=== PATIENT | male | born 1985 | race Hispanic/Latino ===

== ENCOUNTER 2018-04-10 20:00 | Emergency (ER) | payer BC ==
[2018-04-10] MEDS ORDERED: ACETAMINOPHEN-CODEINE 300/30MG TAB ONE (20:55)
== END 2018-04-10 21:09 | disposition home or self-care (01) ==
LOC: EDH 20:00
DX: S20.222A Contusion of left back wall of thorax, initial encounter (principal); W01.198A Fall on same level from slipping, tripping and stumbling with subsequent striking against other object, initial encounter; Y93.01 Activity, walking, marching and hiking; Y92.89 Other specified places as the place of occurrence of the external cause; Y99.8 Other external cause status
CPT/HCPCS: 71101

== ENCOUNTER 2020-06-29 12:49 | Inpatient (IN) | payer BC ==
[~2020-06-29] VITALS: Ht 182.9 cm; Wt 61.7 kg
[2020-06-29] MEDS ORDERED: HYDROXYZINE 25 MG TABLET ONE (13:28)
[2020-06-29 14:41] LABS: BASOPHILS % (AUTO) 0.7 % (0.0-5.0); EOSINOPHILS % (AUTO) 0.2 % (0.0-8.0); HEMATOCRIT 40.7 % (42-54); LYMPHOCYTES % (AUTO) 14.1 % (21.0-51.0); MEAN CORPUSCULAR HEMOGLOBIN 28.8 pg (27.0-33.0); MEAN CORPUSCULAR HGB CONC 32.9 g/dL (32.0-36.0); MEAN CORPUSCULAR VOLUME 87.5 fL (79-99); NEUTROPHILS % (AUTO) 74.7 % (40.0-77.0); PLATELET COUNT (AUTO) 267 K/uL (130-400); RED BLOOD CELL COUNT(AUTO) 4.65 MIL/uL (4.50-6.20); RED CELL DISTRIBUTION WIDTH 12.7 % (11.0-15.5); WHITE BLOOD COUNT (AUTO) 9.7 K/uL (4.8-10.8)
[2020-06-29 14:51] LABS: CREATININE 0.7 mg/dL (0.5-1.5); POTASSIUM 3.3 mmol/L (3.5-5.1)
[2020-06-29 14:54] LABS: ACETAMINOPHEN 4 mcg/mL (10-29); ALCOHOL, BLOOD < 3 mg/dL (0-10)
[2020-06-29 14:55] LABS: ALBUMIN 4.3 g/dL (3.5-5.0); BILIRUBIN,TOTAL 0.9 mg/dL (0.2-1.0)
[2020-06-29] MEDS ORDERED: 0.9%NACL 50ML 50 ML IV ONE (15:03)
[2020-06-29] MEDS ORDERED: 0.9%NACL 1000ML 1,000 ML IV ONE (15:05)
[2020-06-29 15:15] LABS: APPEARANCE,URINE Clear (CLEAR); BILIRUBIN,URINE Negative (NEGATIVE); COLOR,URINE Yellow (YELLOW); GLUCOSE, URINE (UA) Negative (NEGATIVE); KETONES,URINE Negative (NEGATIVE); LEUKOCYTE ESTERASE ,URINE Negative (NEGATIVE); NITRATE,URINE Negative (NEGATIVE); OCCULT BLOOD,URINE Negative (NEGATIVE); PROTEIN,URINE Negative (NEGATIVE); UROBILINOGEN,URINE 0.2 mg/dL (0.2-1.0)
[2020-06-29] MEDS ORDERED: LORAZEPAM 2 MG/ML 1 ML VIAL ONE ×3 (16:13→21:50)
[2020-06-29] MEDS ORDERED: HALOPERIDOL INJ 5 MG/ML VIAL ONE (16:13)
[2020-06-29] MEDS ORDERED: ZIPRASIDONE MESYLATE 20 MG/VIAL IM ONE (17:24)
[2020-06-29 17:25] LABS: AMPHET/METH SCREEN,URINE NEGATIVE (NEGATIVE); BARBITURATE SCREEN, URINE NEGATIVE (NEGATIVE); BENZODIAZEPINES SCREEN,URINE NEGATIVE (NEGATIVE); CANNABINOID SCREEN,URINE POSITIVE (NEGATIVE); COCAINE SCREEN,URINE NEGATIVE (NEGATIVE); OPIATE SCREEN,URINE NEGATIVE (NEGATIVE); PHENCYCLIDINE SCREEN,URINE NEGATIVE (NEGATIVE)
[2020-06-29] MEDS ORDERED: ZIPRASIDONE MESYLATE 20 MG/VIAL IM SCH (17:30)
[2020-06-29] MEDS ORDERED: OLANZAPINE 10MG/ML 1ML VIAL IM ONE (17:45)
[2020-06-29] MEDS ORDERED: ONDANSETRON 4MG INJ IVP PRN (18:00)
[2020-06-29] MEDS ORDERED: OLANZAPINE 10MG/ML 1ML VIAL IM PRN (21:30)
[2020-06-29] MEDS ORDERED: LORAZEPAM 2 MG/ML 1 ML VIAL IM PRN (21:30)
[2020-06-29] MEDS ORDERED: LORAZEPAM 2 MG/ML 1 ML VIAL IVP NR (22:45)
[2020-06-29] MEDS ORDERED: LORAZEPAM 2 MG/ML 1 ML VIAL IVP SCH (23:00)
[2020-06-30] MEDS: 0.9%NACL 1000ML 1,000 ML IV SCH ×3 (01:36→15:57)
[2020-06-30 02:15] VITALS: BP 141/66
[2020-06-30] MEDS ORDERED: POTASSIUM CHLORIDE 20MEQ/100ML 100 ML IV PRN (03:30)
[2020-06-30] MEDS ORDERED: POTASSIUM CHLORIDE 10% ELIXIR 20 MEQ/15 ML UDCUP PO PRN (03:30)
[2020-06-30] MEDS ORDERED: LIDOCAINE HCL-MPF 1% 2ML VIAL IV PRN (03:30)
[2020-06-30 05:02] LABS: BASOPHILS % (AUTO) 0.7 % (0.0-5.0); EOSINOPHILS % (AUTO) 0.2 % (0.0-8.0); HEMATOCRIT 42.1 % (42-54); LYMPHOCYTES % (AUTO) 14.3 % (21.0-51.0); MEAN CORPUSCULAR HEMOGLOBIN 28.5 pg (27.0-33.0); MEAN CORPUSCULAR HGB CONC 32.3 g/dL (32.0-36.0); MEAN CORPUSCULAR VOLUME 88.3 fL (79-99); MONOCYTES % (AUTO) 10.8 % (3.0-13.0); NEUTROPHILS % (AUTO) 73.7 % (40.0-77.0); PLATELET COUNT (AUTO) 236 K/uL (130-400); RED BLOOD CELL COUNT(AUTO) 4.77 MIL/uL (4.50-6.20); RED CELL DISTRIBUTION WIDTH 12.7 % (11.0-15.5); WHITE BLOOD COUNT (AUTO) 9.2 K/uL (4.8-10.8)
[2020-06-30 05:39] LABS: ALBUMIN 3.8 g/dL (3.5-5.0); BILIRUBIN,TOTAL 1.1 mg/dL (0.2-1.0); CREATININE 0.7 mg/dL (0.5-1.5); POTASSIUM 3.9 mmol/L (3.5-5.1); TOTAL PROTEIN, SERUM 7.1 g/dL (6.0-8.3)
[2020-06-30 05:57] VITALS: BP 136/79
[2020-06-30 07:14] VITALS: BP 125/82
[2020-06-30 12:00] VITALS: BP 123/57
[2020-06-30] MEDS ORDERED: PHARMACY COMMUNICATION MISC PRN (12:45)
[2020-06-30 16:00] VITALS: BP 129/76
[2020-06-30] MEDS ORDERED: CLONAZEPAM 2 MG TABLET PO ONE (18:00)
[2020-06-30] MEDS ORDERED: CLONAZEPAM 2 MG TABLET PO SCH (18:00)
[2020-06-30] MEDS ORDERED: ZIPRASIDONE MESYLATE 20 MG/VIAL IM SCH (18:15)
[2020-06-30 20:00] VITALS: BP 126/87
[2020-07-01] VITALS (7 sets, daily range): BP systolic 126–138; BP diastolic 79–85
[2020-07-01] MEDS: 0.9%NACL 1000ML 1,000 ML IV SCH ×3 (01:41→19:42)
[2020-07-01] MEDS ORDERED: PHARMACY COMMUNICATION MISC SCH (03:15)
[2020-07-01] MEDS ORDERED: ZIPRASIDONE MESYLATE 20 MG/VIAL IM PRN (03:15)
[2020-07-01] MEDS ORDERED: CLONAZEPAM 1MG TAB PO PRN (06:30)
[2020-07-01 06:35] LABS: BASOPHILS % (AUTO) 0.4 % (0.0-5.0); EOSINOPHILS % (AUTO) 0.4 % (0.0-8.0); HEMATOCRIT 40.5 % (42-54); LYMPHOCYTES % (AUTO) 7.7 % (21.0-51.0); MEAN CORPUSCULAR HEMOGLOBIN 29.2 pg (27.0-33.0); MEAN CORPUSCULAR HGB CONC 33.3 g/dL (32.0-36.0); MEAN CORPUSCULAR VOLUME 87.5 fL (79-99); MONOCYTES % (AUTO) 7.6 % (3.0-13.0); NEUTROPHILS % (AUTO) 83.5 % (40.0-77.0); PLATELET COUNT (AUTO) 259 K/uL (130-400); RED BLOOD CELL COUNT(AUTO) 4.63 MIL/uL (4.50-6.20); RED CELL DISTRIBUTION WIDTH 12.6 % (11.0-15.5); WHITE BLOOD COUNT (AUTO) 10.5 K/uL (4.8-10.8)
[2020-07-01 07:08] LABS: ALBUMIN 3.3 g/dL (3.5-5.0); BILIRUBIN,TOTAL 0.7 mg/dL (0.2-1.0); CREATININE 0.7 mg/dL (0.5-1.5); POTASSIUM 3.6 mmol/L (3.5-5.1); TOTAL PROTEIN, SERUM 6.5 g/dL (6.0-8.3)
[2020-07-01] MEDS: MULTIVITAMIN TABLET PO SCH (08:56)
[2020-07-01] MEDS: THIAMINE HCL 100 MG TABLET PO SCH (08:56)
[2020-07-01] MEDS: FOLIC ACID 1 MG TABLET PO SCH (08:56)
[2020-07-01] MEDS: CLONAZEPAM 0.5 MG TABLET PO SCH ×3 (13:39→19:42)
[2020-07-01] MEDS ORDERED: CLONAZEPAM 1MG TAB PO SCH (21:00)
[2020-07-02 03:15] VITALS: BP 131/78
[2020-07-02] MEDS: 0.9%NACL 1000ML 1,000 ML IV SCH ×2 (05:07→20:40)
[2020-07-02 06:01] LABS: BASOPHILS % (AUTO) 0.5 % (0.0-5.0); EOSINOPHILS % (AUTO) 0.8 % (0.0-8.0); HEMATOCRIT 39.5 % (42-54); LYMPHOCYTES % (AUTO) 10.9 % (21.0-51.0); MEAN CORPUSCULAR HEMOGLOBIN 28.8 pg (27.0-33.0); MEAN CORPUSCULAR HGB CONC 32.4 g/dL (32.0-36.0); MEAN CORPUSCULAR VOLUME 88.8 fL (79-99); MONOCYTES % (AUTO) 8.1 % (3.0-13.0); NEUTROPHILS % (AUTO) 79.4 % (40.0-77.0); PLATELET COUNT (AUTO) 242 K/uL (130-400); RED BLOOD CELL COUNT(AUTO) 4.45 MIL/uL (4.50-6.20); RED CELL DISTRIBUTION WIDTH 12.7 % (11.0-15.5); WHITE BLOOD COUNT (AUTO) 9.1 K/uL (4.8-10.8)
[2020-07-02 06:34] LABS: ALBUMIN 3.1 g/dL (3.5-5.0); BILIRUBIN,TOTAL 0.5 mg/dL (0.2-1.0); CREATININE 0.7 mg/dL (0.5-1.5); POTASSIUM 3.5 mmol/L (3.5-5.1); TOTAL PROTEIN, SERUM 6.3 g/dL (6.0-8.3)
[2020-07-02] MEDS: KCL 20 MEQ ERTAB PO PRN ×2 (06:41→18:52)
[2020-07-02 08:00] VITALS: BP 131/75
[2020-07-02] MEDS: MULTIVITAMIN TABLET PO SCH (08:52)
[2020-07-02] MEDS: THIAMINE HCL 100 MG TABLET PO SCH (08:52)
[2020-07-02] MEDS: CLONAZEPAM 0.5 MG TABLET PO SCH ×3 (08:52→20:35)
[2020-07-02] MEDS: FOLIC ACID 1 MG TABLET PO SCH (08:52)
[2020-07-02 12:00] VITALS: BP 130/73
[2020-07-02 16:00] VITALS: BP 132/79
[2020-07-02 20:00] VITALS: BP 140/82
[2020-07-03 00:10] VITALS: BP 136/75
[2020-07-03] MEDS: 0.9%NACL 1000ML 1,000 ML IV SCH ×3 (01:18→20:23)
[2020-07-03 03:51] VITALS: BP 141/79
[2020-07-03 05:38] LABS: BASOPHILS % (AUTO) 0.8 % (0.0-5.0); EOSINOPHILS % (AUTO) 1.4 % (0.0-8.0); HEMATOCRIT 37.2 % (42-54); LYMPHOCYTES % (AUTO) 16.9 % (21.0-51.0); MEAN CORPUSCULAR HEMOGLOBIN 29.1 pg (27.0-33.0); MEAN CORPUSCULAR HGB CONC 33.1 g/dL (32.0-36.0); MEAN CORPUSCULAR VOLUME 88.2 fL (79-99); MONOCYTES % (AUTO) 10.1 % (3.0-13.0); NEUTROPHILS % (AUTO) 70.1 % (40.0-77.0); PLATELET COUNT (AUTO) 242 K/uL (130-400); RED BLOOD CELL COUNT(AUTO) 4.22 MIL/uL (4.50-6.20); RED CELL DISTRIBUTION WIDTH 12.8 % (11.0-15.5); WHITE BLOOD COUNT (AUTO) 7.6 K/uL (4.8-10.8)
[2020-07-03 05:52] LABS: BILIRUBIN,TOTAL 0.3 mg/dL (0.2-1.0); CREATININE 0.7 mg/dL (0.5-1.5); POTASSIUM 3.5 mmol/L (3.5-5.1); TOTAL PROTEIN, SERUM 6.1 g/dL (6.0-8.3)
[2020-07-03] MEDS: KCL 20 MEQ ERTAB PO PRN (06:29)
[2020-07-03 08:00] VITALS: BP 126/78
[2020-07-03] MEDS: CLONAZEPAM 0.5 MG TABLET PO SCH ×3 (09:42→20:22)
[2020-07-03] MEDS: MULTIVITAMIN TABLET PO SCH (09:43)
[2020-07-03] MEDS: THIAMINE HCL 100 MG TABLET PO SCH (09:43)
[2020-07-03] MEDS: FOLIC ACID 1 MG TABLET PO SCH (09:43)
[2020-07-03 11:59] VITALS: BP 128/76
[2020-07-03 17:26] VITALS: BP 138/81
[2020-07-03 20:01] VITALS: BP 122/71
[2020-07-04] VITALS: BP 123/78
[2020-07-04 04:00] VITALS: BP 138/77
[2020-07-04 07:33] VITALS: BP 123/79
[2020-07-04 07:55] LABS: BASOPHILS % (AUTO) 0.5 % (0.0-5.0); EOSINOPHILS % (AUTO) 0.9 % (0.0-8.0); HEMATOCRIT 38.8 % (42-54); LYMPHOCYTES % (AUTO) 15.2 % (21.0-51.0); MEAN CORPUSCULAR HEMOGLOBIN 28.8 pg (27.0-33.0); MEAN CORPUSCULAR VOLUME 87.2 fL (79-99); MONOCYTES % (AUTO) 8.1 % (3.0-13.0); NEUTROPHILS % (AUTO) 74.9 % (40.0-77.0); PLATELET COUNT (AUTO) 284 K/uL (130-400); RED BLOOD CELL COUNT(AUTO) 4.45 MIL/uL (4.50-6.20); RED CELL DISTRIBUTION WIDTH 12.7 % (11.0-15.5); WHITE BLOOD COUNT (AUTO) 8.5 K/uL (4.8-10.8)
[2020-07-04 08:14] LABS: CREATININE 0.7 mg/dL (0.5-1.5); POTASSIUM 3.8 mmol/L (3.5-5.1)
[2020-07-04] MEDS: MULTIVITAMIN TABLET PO SCH (08:15)
[2020-07-04] MEDS: CLONAZEPAM 0.5 MG TABLET PO SCH ×3 (08:15→21:25)
[2020-07-04] MEDS: FOLIC ACID 1 MG TABLET PO SCH (08:15)
[2020-07-04] MEDS: THIAMINE HCL 100 MG TABLET PO SCH (08:31)
[2020-07-04 12:00] VITALS: BP 131/85
[2020-07-04] MEDS: 0.9%NACL 1000ML 1,000 ML IV SCH ×2 (12:04→18:00)
[2020-07-04 16:00] VITALS: BP 126/94
[2020-07-04 19:59] VITALS: BP 130/78
[2020-07-05 00:33] VITALS: BP 127/76
== END 2020-07-05 01:24 | DRG 918 ==
LOC: EDH 12:49 → EDHIP 16:32 → 3DH 06-30 00:12 → 3CH 07-03 18:25
PROVIDERS: ADMIT Family Medicine; ATTEND Family Medicine
PROC: 5A1D70Z Performance of Urinary Filtration, Intermittent, Less than 6 Hours Per Day (ICD-10-PCS; principal; 2020-07-03)
DX: T40.5X4A Poisoning by cocaine, undetermined, initial encounter (principal); M62.82 Rhabdomyolysis; R45.851 Suicidal ideations; F19.150 Other psychoactive substance abuse with psychoactive substance-induced psychotic disorder with delusions; T40.7X1A Poisoning by cannabis (derivatives), accidental (unintentional), initial encounter; E87.6 Hypokalemia; F17.200 Nicotine dependence, unspecified, uncomplicated; F10.10 Alcohol abuse, uncomplicated; F31.9 Bipolar disorder, unspecified; F63.81 Intermittent explosive disorder; G47.00 Insomnia, unspecified; R45.850 Homicidal ideations; F14.159 Cocaine abuse with cocaine-induced psychotic disorder, unspecified; F20.9 Schizophrenia, unspecified; F12.23 Cannabis dependence with withdrawal; Y92.89 Other specified places as the place of occurrence of the external cause; T40.2X1A Poisoning by other opioids, accidental (unintentional), initial encounter; Z20.822 Contact with and (suspected) exposure to COVID-19
CPT/HCPCS: 36415; 70450; 71045; 80048; 80053; 80305; 81003; 82550; 82977; 85025; 87040; 87426; 87804; 99291; G0378; J1630; J2060; J3486; J3490; J7030; U0003

== ENCOUNTER 2021-04-15 19:33 | Emergency (ER) | payer BC ==
[~2021-04-15] VITALS: Ht 172.7 cm; Wt 96.6 kg
[2021-04-15] MEDS ORDERED: SERTRALINE HCL 50 MG TABLET PO ONE (21:00)
[2021-04-15] MEDS ORDERED: SERTRALINE HCL 50 MG TABLET ONE (21:05)
[2021-04-15 21:19] VITALS: BP 129/88
== END 2021-04-15 21:20 | disposition home or self-care (01) ==
LOC: EDH 19:33
DX: F41.9 Anxiety disorder, unspecified (principal); M54.6 Pain in thoracic spine; Z79.899 Other long term (current) drug therapy